=== PATIENT | male | born 1995 | race African-American/Black ===

== ENCOUNTER 2020-08-04 14:12 | Emergency (ER) | payer SELFPAY ==
[~2020-08-04] VITALS: Ht 175.3 cm; Wt 83.9 kg
[2020-08-04 16:02] VITALS: BP 120/54
== END 2020-08-04 17:24 | disposition home or self-care (01) ==
LOC: ER 14:12
DX: S80.11XA Contusion of right lower leg, initial encounter (principal); X58.XXXA Exposure to other specified factors, initial encounter; Y93.89 Activity, other specified; Y92.89 Other specified places as the place of occurrence of the external cause; Y99.8 Other external cause status
CPT/HCPCS: 10060; 10140

== ENCOUNTER 2020-08-08 13:03 | Emergency (ER) | payer SELFPAY ==
[~2020-08-08] VITALS: Ht 175.3 cm; Wt 81.6 kg
[2020-08-08 15:38] VITALS: BP 127/62
== END 2020-08-08 16:36 | disposition home or self-care (01) ==
LOC: ER 13:06
DX: Z48.01 Encounter for change or removal of surgical wound dressing (principal); L02.415 Cutaneous abscess of right lower limb

== ENCOUNTER 2020-08-10 11:00 | Emergency (ER) | payer SELFPAY ==
[~2020-08-10] VITALS: Ht 175.3 cm; Wt 83.9 kg
[2020-08-10 11:13] VITALS: BP 105/54
== END 2020-08-10 11:53 | disposition home or self-care (01) ==
LOC: ER 11:00
DX: S80.11XD Contusion of right lower leg, subsequent encounter (principal); X58.XXXD Exposure to other specified factors, subsequent encounter

== ENCOUNTER 2021-01-31 15:12 | Emergency (ER) | payer SELFPAY ==
[~2021-01-31] VITALS: Ht 172.7 cm; Wt 81.6 kg
[2021-01-31] MEDS ORDERED: IBUP800T27 PO (16:51)
[2021-01-31 17:32] VITALS: BP 151/63
== END 2021-01-31 16:42 | disposition home or self-care (01) ==
LOC: ER 15:12
DX: S29.011A Strain of muscle and tendon of front wall of thorax, initial encounter (principal); F17.210 Nicotine dependence, cigarettes, uncomplicated; F12.10 Cannabis abuse, uncomplicated; X50.1XXA Overexertion from prolonged static or awkward postures, initial encounter; Y93.89 Activity, other specified; Y92.89 Other specified places as the place of occurrence of the external cause; Y99.8 Other external cause status
CPT/HCPCS: 71101

== ENCOUNTER 2022-11-25 15:21 | Inpatient (IN) | payer OTHER ==
[~2022-11-25] VITALS: Ht 172.7 cm; Wt 82.5 kg
[~2022-11-25 15:21] MED LIST: IBUP-1456 PO
[2022-11-25 16:09] LABS: Basophils # (auto) 0 10 ^3/uL (0-0.2); Basophils % (auto) 0.7 % (0.0-2.0); Eosinophils # (auto) 0.1 10 ^3/uL (0-0.8); Eosinophils % (auto) 2.3 % (0.0-7.0); Hematocrit 44.2 % (41.0-53.0); Hemoglobin 15.3 g/dL (13.5-17.5); Lymphocytes # (auto) 2.6 10 ^3/uL (0.4-5.4); Lymphocytes % (auto) 41.8 % (10.0-50.0); Mean Corpuscular Hemoglobin 31.7 pg (28.0-32.0); Mean Corpuscular Hgb Conc. 34.5 g/dL (32.0-36.0); Mean Corpuscular Volume 91.9 fL (80.0-100.0); Monocytes # (auto) 0.3 10 ^3/uL (0-1.3); Monocytes % (auto) 5.2 % (0.0-12.0); Neutrophils # (auto) 3.2 10 ^3/uL (1.6-8.6); Nucleated Red Blood Cells % 0.1 %; Red Blood Cells 4.81 10^6/uL (4.5-5.90); Red Cell Distribution Width 13.1 % (11.8-14.3); White Blood Cell 6.3 10^3/uL (4.4-10.8)
[2022-11-25 16:27] LABS: Alanine Aminotransferase 21 U/L (7-40); Albumin 4.7 g/dL (3.2-4.8); Alkaline Phosphatase 59 U/L (46-116); Anion Gap 6 (5-15); Aspartate Aminotransferase 27 U/L (13-40); Bilirubin, Total 1.5 mg/dL (0.2-1.0); Blood Urea Nitrogen 11 mg/dL (9-23); Calcium 9.5 mg/dL (8.7-10.4); Carbon Dioxide 27 mmol/L (20-30); Chloride 104 mmol/L (98-107); Glucose 94 mg/dL (74-106); Lipase 46 U/L (12-53); Potassium 3.3 mmol/L (3.5-5.1); Sodium 137 mmol/L (136-145); Total Protein 7.6 g/dL (5.7-8.2)
[2022-11-25 18:53] LABS: Urine Bacteria NONE SEEN /hpf (None Seen); Urine Blood Negative /uL (Negative); Urine Clarity Clear (Clear); Urine Color Yellow (Yellow); Urine Mucus FEW (None Seen); Urine Protein, UAD Negative (Negative); Urine Specific Gravity 1.012 (1.001-1.035); Urine Urobilinogen Normal (Negative); Urine WBC 9 /hpf (0 - 3); Urine pH 5.5 (5.0-8.0)
[2022-11-25] MEDS ORDERED: SODIUM CHLORIDE 0.9% 1,000 ML IV ONE (21:00)
[2022-11-25] MEDS ORDERED: ONDANSETRON HCL 4 MG/2 ML VIAL IV ONE (21:00)
[2022-11-25] MEDS ORDERED: MORPHINE SULFATE 4 MG/ML SYR/VIAL IV ONE (21:00)
[2022-11-25] MEDS ORDERED: CEFTRIAXONE SODIUM 2 GM in D5W 5% 100 ML IV ONE (21:00)
[2022-11-25] MEDS ORDERED: ONDANSETRON HCL 4 MG/2 ML VIAL IV PRN (21:15)
[2022-11-25] MEDS ORDERED: DOCUSATE SOD 100 MG CAP PO PRN (21:15)
[2022-11-25] MEDS ORDERED: ACETAMINOPHEN 325 MG TAB PO PRN (21:15)
[2022-11-25] MEDS ORDERED: MORPHINE SULFATE INJ 2 MG/ml SYRG IV PRN (21:15)
[2022-11-25] MEDS: D5W 5% IV SCH (23:57)
[2022-11-25] MEDS: CEFTRIAXONE SODIUM IV SCH (23:57)
[2022-11-26] VITALS (9 sets, daily range): BP systolic 128–146; BP diastolic 58–88; PULSE 41–52; RESP 16–20; TEMP 97.8–98.1; O2SAT 97–100
[2022-11-26] MEDS: CEFTRIAXONE SODIUM IV SCH (00:02)
[2022-11-26] MEDS: D5W 5% IV SCH (00:02)
[2022-11-26 06:46] LABS: Alanine Aminotransferase 18 U/L (7-40); Albumin 4.1 g/dL (3.2-4.8); Alkaline Phosphatase 51 U/L (46-116); Anion Gap 5 (5-15); Aspartate Aminotransferase 23 U/L (13-40); BUN/Creatinine Ratio 6.6 (10.0-20.0); Bilirubin, Total 1.3 mg/dL (0.2-1.0); Blood Urea Nitrogen 9 mg/dL (9-23); Calcium 9.1 mg/dL (8.7-10.4); Carbon Dioxide 28 mmol/L (20-30); Chloride 107 mmol/L (98-107); Glucose 88 mg/dL (74-106); Potassium 3.6 mmol/L (3.5-5.1); Sodium 140 mmol/L (136-145)
[2022-11-26 06:47] LABS: Total Protein 6.8 g/dL (5.7-8.2)
[2022-11-26 06:57] LABS: Basophils # (auto) 0 10 ^3/uL (0-0.2); Basophils % (auto) 0.7 % (0.0-2.0); Eosinophils # (auto) 0.2 10 ^3/uL (0-0.8); Eosinophils % (auto) 2.8 % (0.0-7.0); Hematocrit 44.1 % (41.0-53.0); Hemoglobin 15.1 g/dL (13.5-17.5); Lymphocytes # (auto) 2.3 10 ^3/uL (0.4-5.4); Lymphocytes % (auto) 41.6 % (10.0-50.0); Mean Corpuscular Hemoglobin 31.8 pg (28.0-32.0); Mean Corpuscular Hgb Conc. 34.3 g/dL (32.0-36.0); Mean Corpuscular Volume 92.6 fL (80.0-100.0); Monocytes # (auto) 0.4 10 ^3/uL (0-1.3); Monocytes % (auto) 7.2 % (0.0-12.0); Neutrophils # (auto) 2.6 10 ^3/uL (1.6-8.6); Neutrophils % (auto) 47.7 % (37.0-80.0); Nucleated Red Blood Cells % 0.1 %; Red Blood Cells 4.76 10^6/uL (4.5-5.90); Red Cell Distribution Width 13.1 % (11.8-14.3); White Blood Cell 5.5 10^3/uL (4.4-10.8)
[2022-11-26] MEDS: cefTRIAXone 1GM/50ML D5W 50 ML IV SCH (08:52)
[2022-11-26 15:03] LABS: INR 1.09 (0.9-1.15); Partial Thromboplastin Time 32.2 SEC (24.5-34.5); Prothrombin Time 11.4 sec (9.3-11.8)
[2022-11-26] MEDS: HYDROcodone-ACET 5/325MG TAB PO PRN (18:20)
[2022-11-27] VITALS (8 sets, daily range): BP systolic 118–143; BP diastolic 68–84; PULSE 44–50; RESP 11–20; TEMP 97.9–98.7; O2SAT 98–100
[2022-11-27] MEDS ORDERED: fentaNYL CITRATE 100 MCG/2 ML VL ONE (09:06)
[2022-11-27] MEDS ORDERED: HEPARIN SODIUM (PORCINE) 5000 UNITS/ML 1ML VIAL ONE (09:06)
[2022-11-27] MEDS ORDERED: MIDAZOLAM HCL 2MG/2ML 2ml VIAL (1mg/ml) ONE (09:07)
[2022-11-27] MEDS ORDERED: LIDOCAINE 2%HCL (LOCAL ANESTH.) INJ 20ML MDV ONE ×2 (09:07→10:56)
[2022-11-27] MEDS ORDERED: IODIXANOL 320MG/ML 100ML BTL IV ONE ×2 (09:08→10:54)
[2022-11-27] MEDS ORDERED: CIPR500T4 PO (09:35)
[2022-11-27] MEDS ORDERED: cefTRIAXone 1GM/50ML D5W 50 ML IV ONE (11:45)
[2022-11-27] MEDS: HYDROcodone-ACET 5/325MG TAB PO PRN (12:12)
[2022-11-27] MEDS: cefTRIAXone 1GM/50ML D5W 50 ML IV SCH (12:58)
[2022-11-27] MEDS ORDERED: HYDR-4902 PO (14:14)
[2022-11-28 12:15] LABS: Hepatitis B Surface Antigen Negative (Negative)
[2022-11-28 12:36] LABS: Hepatitis C Antibody Negative (Negative)
== END 2022-11-27 17:32 | disposition home or self-care (01) | DRG 690 ==
LOC: ER 15:21 → OVERFLOW 21:05 → WEST WING 23:49
PROVIDERS: ADMIT Nurse Practitioner Family; ATTEND Nurse Practitioner Acute Care
PROC: 0T9330Z Drainage of Right Kidney Pelvis with Drainage Device, Percutaneous Approach (ICD-10-PCS; principal; 2022-11-27)
PROC: BT111ZZ Fluoroscopy of Right Kidney using Low Osmolar Contrast (ICD-10-PCS; 2022-11-27)
PROC: BT41ZZZ Ultrasonography of Right Kidney (ICD-10-PCS; 2022-11-27)
DX: N13.6 Pyonephrosis (principal); N17.9 Acute kidney failure, unspecified; E87.6 Hypokalemia; F17.210 Nicotine dependence, cigarettes, uncomplicated; Z82.5 Family history of asthma and other chronic lower respiratory diseases; Z83.3 Family history of diabetes mellitus; R00.1 Bradycardia, unspecified
CPT/HCPCS: 36415; 74176; 76775; 76942; 80053; 81001; 83690; 85025; 85610; 85730; 86803; 87086; 87340; 93306; 99152; G0378; J0696; J2250; J2405; J7060; Q9967

== ENCOUNTER → 2022-12-20 | Outpatient (CLI) | payer OTHER ==
[~2022-12-20] MED LIST changes: +CIPR500T4 PO; +HYDR-4902 PO
[2022-12-20 13:41] LABS: Alanine Aminotransferase 33 U/L (7-40); Alkaline Phosphatase 69 U/L (46-116); Carbon Dioxide 30 mmol/L (20-30); Chloride 104 mmol/L (98-107)
[2022-12-20 13:42] LABS: Albumin 4.7 g/dL (3.2-4.8); Anion Gap 4 (5-15); Aspartate Aminotransferase 30 U/L (13-40); BUN/Creatinine Ratio 5.5 (10.0-20.0); Bilirubin, Total 0.8 mg/dL (0.2-1.0); Blood Urea Nitrogen 7 mg/dL (9-23); Glucose 89 mg/dL (74-106); Magnesium 1.8 mg/dL (1.6-2.6); Potassium 4.6 mmol/L (3.5-5.1); Sodium 138 mmol/L (136-145); Total Protein 7.9 g/dL (5.7-8.2); Urine Bacteria NONE SEEN /hpf (None Seen); Urine Blood Negative /uL (Negative); Urine Clarity Clear (Clear); Urine Color Colorless (Yellow); Urine Protein, UAD Negative (Negative); Urine Specific Gravity 1.008 (1.001-1.035); Urine Urobilinogen Normal (Negative); Urine WBC 7 /hpf (0 - 3)
== END | disposition home or self-care (01) ==
LOC: LAB 12:43
PROVIDERS: ATTEND Internal Medicine
DX: N13.9 Obstructive and reflux uropathy, unspecified (principal)
CPT/HCPCS: 36415; 80053; 81001; 83735; 84439; 84443; 87086

== ENCOUNTER → 2023-02-04 | Outpatient (CLI) | payer OTHER ==
[2023-02-04 13:23] LABS: Basophils # (auto) 0 10 ^3/uL (0-0.2); Basophils % (auto) 0.8 % (0.0-2.0); Eosinophils # (auto) 0.1 10 ^3/uL (0-0.8); Eosinophils % (auto) 1.4 % (0.0-7.0); Hemoglobin 15.3 g/dL (13.5-17.5); Lymphocytes # (auto) 1.4 10 ^3/uL (0.4-5.4); Lymphocytes % (auto) 24.4 % (10.0-50.0); Mean Corpuscular Hemoglobin 31.4 pg (28.0-32.0); Mean Corpuscular Volume 92.2 fL (80.0-100.0); Monocytes # (auto) 0.4 10 ^3/uL (0-1.3); Monocytes % (auto) 6.8 % (0.0-12.0); Neutrophils # (auto) 3.8 10 ^3/uL (1.6-8.6); Neutrophils % (auto) 66.6 % (37.0-80.0); Nucleated Red Blood Cells % 1.1 %; Red Blood Cells 4.88 10^6/uL (4.5-5.90); Red Cell Distribution Width 14.1 % (11.8-14.3); White Blood Cell 5.6 10^3/uL (4.4-10.8)
[2023-02-04 13:36] LABS: INR 1.05 (0.9-1.15); Partial Thromboplastin Time 29.6 SEC (24.5-34.5)
[2023-02-04 13:57] LABS: Alanine Aminotransferase 17 U/L (7-40); Albumin 4.7 g/dL (3.2-4.8); Alkaline Phosphatase 60 U/L (46-116); Anion Gap 4 (5-15); Aspartate Aminotransferase 21 U/L (13-40); BUN/Creatinine Ratio 6.7 (10.0-20.0); Bilirubin, Total 1.2 mg/dL (0.2-1.0); Blood Urea Nitrogen 9 mg/dL (9-23); Calcium 10.1 mg/dL (8.5-10.1); Carbon Dioxide 30 mmol/L (20-30); Chloride 105 mmol/L (98-107); Glucose 95 mg/dL (74-106); Potassium 4.6 mmol/L (3.5-5.1); Sodium 139 mmol/L (136-145); Total Protein 7.7 g/dL (5.7-8.2)
== END | disposition home or self-care (01) ==
LOC: LAB 13:01
PROVIDERS: ATTEND Internal Medicine
DX: Z01.812 Encounter for preprocedural laboratory examination (principal); N13.30 Unspecified hydronephrosis
CPT/HCPCS: 36415; 80053; 85025; 85610; 85730

== ENCOUNTER 2023-02-07 07:06 | Day surgery (SDC) | payer OTHER ==
[~2023-02-07] VITALS: Ht 172.7 cm; Wt 83.9 kg
[2023-02-07] MEDS ORDERED: fentaNYL CITRATE 100 MCG/2 ML VL ONE (08:43)
[2023-02-07] MEDS ORDERED: MIDAZOLAM HCL 2MG/2ML 2ml VIAL (1mg/ml) ONE (08:44)
[2023-02-07] MEDS ORDERED: LIDOCAINE 2%HCL (LOCAL ANESTH.) INJ 20ML MDV ONE (08:44)
[2023-02-07] MEDS ORDERED: IODIXANOL 320MG/ML 100ML BTL IV ONE (08:44)
== END 2023-02-07 09:38 | disposition home or self-care (01) ==
LOC: CATH 07:06
PROVIDERS: ATTEND Radiology Diagnostic Radiology
DX: T83.022A Displacement of nephrostomy catheter, initial encounter (principal); N13.30 Unspecified hydronephrosis; F41.9 Anxiety disorder, unspecified; Y82.8 Other medical devices associated with adverse incidents; Z82.49 Family history of ischemic heart disease and other diseases of the circulatory system; Z82.5 Family history of asthma and other chronic lower respiratory diseases; Z72.89 Other problems related to lifestyle; Z91.013 Allergy to seafood
CPT/HCPCS: 50431; J1644; J7040; Q9967; 74425; 99152; J2250

== ENCOUNTER 2023-02-23 04:39 | Inpatient (IN) | payer OTHER ==
[~2023-02-23] VITALS: Ht 175.3 cm; Wt 86.2 kg
[2023-02-23] MEDS ORDERED: MORPHINE SULFATE 4 MG/ML SYR/VIAL IV ONE (07:30)
[2023-02-23] MEDS ORDERED: ONDANSETRON HCL 4 MG/2 ML VIAL IV ONE (07:30)
[2023-02-23] MEDS ORDERED: SODIUM CHLORIDE 0.9% 1,000 ML IV ONE (07:30)
[2023-02-23 07:38] LABS: Basophils # (auto) 0 10 ^3/uL (0-0.2); Basophils % (auto) 0.6 % (0.0-2.0); Eosinophils # (auto) 0.1 10 ^3/uL (0-0.8); Hematocrit 46.9 % (41.0-53.0); Lymphocytes # (auto) 2.2 10 ^3/uL (0.4-5.4); Mean Corpuscular Hemoglobin 31.3 pg (28.0-32.0); Mean Corpuscular Volume 92.1 fL (80.0-100.0); Monocytes # (auto) 0.5 10 ^3/uL (0-1.3); Monocytes % (auto) 6.2 % (0.0-12.0); Neutrophils # (auto) 4.7 10 ^3/uL (1.6-8.6); Neutrophils % (auto) 62.2 % (37.0-80.0); Nucleated Red Blood Cells % 0.1 %; White Blood Cell 7.5 10^3/uL (4.4-10.8)
[2023-02-23 07:49] LABS: INR 1.02 (0.9-1.15); Prothrombin Time 10.7 sec (9.3-11.8)
[2023-02-23 07:53] LABS: Alanine Aminotransferase 19 U/L (7-40); Albumin 5.1 g/dL (3.2-4.8); Alkaline Phosphatase 71 U/L (46-116); Anion Gap 11 (5-15); Aspartate Aminotransferase 25 U/L (13-40); BUN/Creatinine Ratio 9.5 (10.0-20.0); Blood Urea Nitrogen 11 mg/dL (9-23); Calcium 10.3 mg/dL (8.5-10.1); Carbon Dioxide 24 mmol/L (20-30); Chloride 104 mmol/L (98-107); Glucose 92 mg/dL (74-106); Potassium 4.1 mmol/L (3.5-5.1); Sodium 139 mmol/L (136-145)
[2023-02-23 07:54] LABS: Bilirubin, Total 0.5 mg/dL (0.2-1.0); Total Protein 8.1 g/dL (5.7-8.2)
[2023-02-23] MEDS ORDERED: KETOROLAC TROMETH 30 MG/ML 1ML VIAL IV ONE (09:15)
[2023-02-23 10:53] VITALS: BP 138/71; PULSE 62; RESP 18; O2SAT 100
[2023-02-23] MEDS ORDERED: HYDR1TAB97 PO (12:17)
[2023-02-23] MEDS ORDERED: CIPR500T4 PO (12:17)
[2023-02-23] MEDS ORDERED: HYDROcodone-ACET 5/325MG TAB PO PRN ×2 (12:30→13:00)
[2023-02-23] MEDS ORDERED: SODIUM CHLORIDE 0.9% 1,000 ML IV SCH (13:00)
[2023-02-23] MEDS ORDERED: KETOROLAC TROMETH 30 MG/ML 1ML VIAL IV PRN (13:00)
[2023-02-23] MEDS ORDERED: ACETAMINOPHEN 325 MG TAB PO PRN (13:00)
[2023-02-24] MEDS ORDERED: ENOXAPARIN SOD 40 MG/0.4 ML SYRINGE SC SCH (10:00)
== END 2023-02-23 18:25 | disposition left against medical advice (07) | DRG 700 ==
LOC: ER 04:39 → EDBD 04:39 → OVERFLOW 12:57
PROVIDERS: ADMIT Nurse Practitioner Family; ATTEND Nurse Practitioner Family
DX: T83.022A Displacement of nephrostomy catheter, initial encounter (principal); F17.210 Nicotine dependence, cigarettes, uncomplicated; Z53.29 Procedure and treatment not carried out because of patient's decision for other reasons; Y73.2 Prosthetic and other implants, materials and accessory gastroenterology and urology devices associated with adverse incidents; Z91.013 Allergy to seafood; Z79.899 Other long term (current) drug therapy; Y92.89 Other specified places as the place of occurrence of the external cause; Z82.5 Family history of asthma and other chronic lower respiratory diseases; Z83.3 Family history of diabetes mellitus
CPT/HCPCS: 36415; 74176; 80053; 85025; 85610; 96361; 96374; 96375; G0378; J1885; J2405

== ENCOUNTER → 2023-05-06 | Outpatient (CLI) | payer OTHER ==
[~2023-05-06] MED LIST changes: -HYDR-4902 PO; -IBUP-1456 PO
[2023-05-06 12:39] LABS: Basophils # (auto) 0 10 ^3/uL (0-0.2); Basophils % (auto) 0.6 % (0.0-2.0); Eosinophils # (auto) 0.1 10 ^3/uL (0-0.8); Eosinophils % (auto) 1.7 % (0.0-7.0); Hematocrit 41.7 % (41.0-53.0); Hemoglobin 14.2 g/dL (13.5-17.5); Lymphocytes % (auto) 34.9 % (10.0-50.0); Mean Corpuscular Hemoglobin 31.4 pg (28.0-32.0); Mean Corpuscular Hgb Conc. 34.1 g/dL (32.0-36.0); Mean Corpuscular Volume 92.2 fL (80.0-100.0); Monocytes # (auto) 0.3 10 ^3/uL (0-1.3); Monocytes % (auto) 4.5 % (0.0-12.0); Neutrophils # (auto) 3.3 10 ^3/uL (1.6-8.6); Neutrophils % (auto) 58.3 % (37.0-80.0); Nucleated Red Blood Cells % 0.1 %; Red Blood Cells 4.52 10^6/uL (4.5-5.90); Red Cell Distribution Width 14.1 % (11.8-14.3); White Blood Cell 5.6 10^3/uL (4.4-10.8)
[2023-05-06 13:17] LABS: Urine Bacteria NONE SEEN /hpf (None Seen); Urine Blood Negative /uL (Negative); Urine Clarity Clear (Clear); Urine Color Colorless (Yellow); Urine Protein, UAD Negative (Negative); Urine Specific Gravity 1.011 (1.001-1.035); Urine Urobilinogen Normal (Negative); Urine WBC 1 /hpf (0 - 3); Urine pH 7.5 (5.0-8.0)
[2023-05-06 13:29] LABS: Chloride 109 mmol/L (98-107); Potassium 3.7 mmol/L (3.5-5.1); Sodium 142 mmol/L (136-145)
[2023-05-06 13:30] LABS: Anion Gap 4 (5-15); Calcium 9.5 mg/dL (8.5-10.1); Carbon Dioxide 29 mmol/L (20-30)
[2023-05-06 13:35] LABS: BUN/Creatinine Ratio 5.9 (10.0-20.0); Blood Urea Nitrogen 7 mg/dL (9-23); Glucose 91 mg/dL (74-106)
== END | disposition home or self-care (01) ==
LOC: LAB 12:27
PROVIDERS: ATTEND Internal Medicine
DX: N13.30 Unspecified hydronephrosis (principal)
CPT/HCPCS: 36415; 80048; 81001; 85025

== ENCOUNTER 2024-09-25 16:03 | Inpatient (IN) | payer SELFPAY ==
[~2024-09-25] VITALS: Ht 167.6 cm; Wt 87.6 kg
--- NOTE | 2024-09-25 16:38 | ED.PDOC ---
History of Present Illness HPI Comments 29 y/o M presents with c/c nonradiating, left flank pain. Patient endorses on ongoing, intermittent, pain following initial, unprovoked onset for the past 2- 3x months. He also reports 1x month history of both of his eyes turning yellow and 2-3x week history of palpitations and bilateral chest wall pain. Only significant history of right kidney obstruction, that required surgical intervention, in 2023. He also reports noticing discharge from his penis, recently, following changing sexual partners 1x month ago. Denies any further acute symptoms. Time Seen by MD: 16:10 Primary Care Provider: DENIES Reviewed Notes: Nurses Notes, Medications, Allergies Allergies: Coded Allergies: Shellfish Allergy (Verified Allergy, Unknown, 02/23/23) Uncoded Allergies: SHELL FISH (Allergy, Unknown, SWOLLEN EYES, HIVES, 02/05/23) Home Meds Reported Medications Ciprofloxacin Hcl (Ciprofloxacin Hcl) 500 Mg Tab, 1 TAB PO BID 02/23/23 Information Source: Patient Mode of Arrival: Ambulatory Severity: Moderate Timing: Months Duration: Since onset Prehospital treatment: None Past Medical History Past Medical History (Other): right kidney obstruction (nephrostomy tube due to UPJ obstruction) Family History Family History: Reviewed,noncontributory to illness Social History Smoker: Cigarettes Alcohol: Occasionally Drugs: Marijuana Lives In: Home All Other Systems: Reviewed and Negative (Comprehensive systems review obtained and negative except for what is stated in the HPI.) Physical Exam General Appearance: No Apparent Distress, Normal HEENT: Normal ENT Inspection, Pharynx Normal, TMs Normal Neck: Full Range of Motion, Non-Tender, Normal, Normal Inspection Respiratory: Chest Non-Tender, Lungs Clear, No Accessory Muscle Use, No Respiratory Distress, Normal Breath Sounds Cardiovascular: No Edema, No JVD, No Murmur, No Gallop, Normal Peripheral Pulses, Regular Rate/Rhythm Breast Exam: Deferred Gastrointestinal: No Organomegaly, Non Tender, No Pulsatile Mass, Normal Bowel Sounds, Soft Genitalia: Deferred Pelvic: Deferred Rectal: Deferred Extremities: No calf tenderness, Normal capillary refill, Normal inspection, Normal range of motion, Non-tender, No pedal edema Musculoskeletal : Apperance: Normal Neurologic: Alert, electronic sensing equipment assembler II-XII nml as Tested, No Motor Deficits, Normal Affect, Normal Mood, No Sensory Deficits Cerebellar Function: Normal Reflexes: Normal Skin: Dry, Normal Color, Warm Lymphatic: No Adenopathy Was a procedure done? Was a procedure done?: No Differential Dx Considerations may include: nephrolithiasis, pyelonephritis, PID, musculoskeletal pain, gastritis, gastroenteritis, STI, among others X-Ray, Labs, Meds, VS Vital Signs Date Time Temp Pulse Resp B/P (MAP) Pulse Ox O2 Delivery O2 Flow Rate FiO2 09/25/24 20:55 98.3 49 17 151/83 (105) 97 98.3 09/25/24 18:29 48 17 97 Room Air 09/25/24 18:29 97.5 48 16 129/63 (85) 97 97.5 09/25/24 16:05 98.4 60 16 133/98 (110) 97 98.4 Lab Test 09/25/24 18:25 09/25/24 16:33 Range/Units Urine Color Yellow Yellow Urine Clarity Clear Clear Urine pH 6.5 5.0-9.0 Urine Specific [place] 1.020 1.001-1.035 Urine Protein Negative Negative Urine Ketones 1+ H Negative Urine Blood Negative Negative /uL Urine Nitrite Negative Negative Urine Bilirubin Negative Negative Urine Urobilinogen 2 H Negative mg/dL Urine Leukocyte Esterase Negative Negative /uL Urine RBC 1 0 - 3 /hpf Urine Microscopic WBC 3 0-3 /HPF Urine Squamous Epithelial Cells Few <5 /hpf Urine Bacteria None seen None Seen /hpf Urine Mucus Few None Seen Urine Glucose Normal Normal mg/dL Chlamydia trachomatis (CURTIS) Pending Neisseria gonorrhoeae (CURTIS) Pending White Blood Count 6.6 4.4-10.8 10^3/uL Red Blood Count 5.15 4.5-5.90 10^6/uL Hemoglobin 17.0 13.5-17.5 g/dL Hematocrit 49.0 41.0-53.0 % Mean Corpuscular Volume 95.1 80.0-100.0 fL Mean Corpuscular Hemoglobin 33.0 H 28.0-32.0 pg Mean Corpuscular Hemoglobin Concent 34.8 32.0-36.0 g/dL Red Cell Distribution Width 14.0 11.8-14.3 % Platelet Count 192 140-450 10^3/uL Mean Platelet Volume 8.3 6.9-10.8 fL Neutrophils (%) (Auto) 66.3 37.0-80.0 % Lymphocytes (%) (Auto) 26.3 10.0-50.0 % Monocytes (%) (Auto) 5.6 0.0-12.0 % Eosinophils (%) (Auto) 1.0 0.0-7.0 % Basophils (%) (Auto) 0.8 0.0-2.0 % Neutrophils # (Auto) 4.4 1.6-8.6 10 ^3/uL Lymphocytes # (Auto) 1.7 0.4-5.4 10 ^3/uL Monocytes # (Auto) 0.4 0-1.3 10 ^3/uL Eosinophils # (Auto) 0.1 0-0.8 10 ^3/uL Basophils # (Auto) 0.1 0-0.2 10 ^3/uL Nucleated Red Blood Cells 0.1 % Sodium Level 140 136-145 mmol/L Potassium Level 3.3 L 3.5-5.1 mmol/L Chloride Level 106 98-107 mmol/L Carbon Dioxide Level 27 20-31 mmol/L Anion Gap 7 5-15 Blood Urea Nitrogen 8 L 9-23 mg/dL Creatinine 1.30 0.700-1.30 mg/dL Glomerular Filtration Rate Calc 77 >90 mL/min BUN/Creatinine Ratio 6.2 L 10.0-20.0 Serum Glucose 104 74-106 mg/dL Calcium Level 10.1 8.7-10.4 mg/dL Total Bilirubin 1.1 H 0.2-1.0 mg/dL Direct Bilirubin 0.4 H <0.3 mg/dL Aspartate Amino Transferase (AST) 27 13-40 U/L Alanine Aminotransferase (ALT) 14 7-40 U/L Alkaline Phosphatase 65 46-116 U/L Total Protein 7.4 5.7-8.2 g/dL Albumin 4.6 3.2-4.8 g/dL Lipase 42 12-53 U/L Time of 1ST Reevaluation: 16:40 Reevaluation 1ST: Unchanged Patient Education/Counseling: Need For Follow Up Family Education/Counseling: No Family Present Comments Previous visits reviewed: February 23, 2023 encounter for nephrostomy tube displaced The following tests were ordered, and results were reviewed by me: chlamydia test, UA, lipase, hepatic panel, UA, CBC, BMP Additional Information was gathered from interviewing the following independent historians: N/A I reviewed and agreed with the following test results read by other providers: N/A I discussed treatment and results with medical personnel and: patient Additional Information Comprehensive review of systems are negative unless otherwise stated in HPI Previous encounters reviewed: N/A Labs/tests ordered: Imaging results in concurrent agreement with: Additional historians interviewed: N/A Discuss care to medical personal and: patient SEPSIS Sepsis Screen Physician Orders Chlamydia/Gc Amplification (09/25/24 16:42) Ct Ab Pel Wo Con-No Oral Or Iv (09/25/24 20:16) Ceftriaxone Sodium (Rocephin) (09/25/24 22:00) Doxycycline Tablet (Vibramycin Tablet) (09/25/24 22:00) Vital Signs Date Time Temp Pulse Resp B/P (MAP) Pulse Ox O2 Delivery O2 Flow Rate FiO2 09/25/24 20:55 98.3 49 17 151/83 (105) 97 98.3 09/25/24 18:29 48 17 97 Room Air 09/25/24 18:29 97.5 48 16 129/63 (85) 97 97.5 09/25/24 16:05 98.4 60 16 133/98 (110) 97 98.4 Laboratory Tests Test 09/25/24 16:33 White Blood Count 6.6 10^3/uL (4.4-10.8) Departure 1 Departure Time of Disposition: 21:57 (Patient presented with abdominal pain that was concerning for possible appendicits, gastritis, cholecystitis, colitis, gastroenteritis, sbo, or orther possible surgical emergency. Data: 1. I ordered and reviewed the result of at least 3 labs including a CBC, BMP, and Urinalysis. 2. I independently interpreted the following tests: CT Abdoment and Pelvis is concerning for hydronephrosis .Risk:This patient has a high risk of morbidity due to further diagnostic testing or treatment and may suffer from an acute abdominal process disorder. Workup reveals patient nephrosis and worsening abdom inal pain as well as penile discharge and patient should be admitted for further workup. and possible expert consultation. ) Impression: Primary Impression: Left flank pain Additional Impressions: Hydronephrosis Qualified Codes: N13.30 - Unspecified hydronephrosis Penile discharge Disposition: ADMITTED INPATIENT Admit to: Med Surg Condition: Serious Critical Care Note Critical Care Time?: No Stability Stability form required: No Heart Score Heart Score: Heart Score Response (Comments) Value History N/A 0 EKG N/A 0 Age N/A 0 Risk Factors N/A 0 Troponin N/A 0 Total 0 I personally scribed for ALEC BROOKS MD ([email or web address]) on 09/25/24 at 16:38. Electronically submitted by Akash Craven ([email or web address]). I personally scribed for ALEC BROOKS MD ([email or web address]) on 09/25/24 at 19:30. Electronically submitted by Akash Craven ([email or web address]). ALEC BROOKS MD Sep 25, 2024 16:38
[2024-09-25 16:55] LABS: Hematocrit 49.0 % (41.0-53.0); Hemoglobin 17.0 g/dL (13.5-17.5); Mean Corpuscular Hemoglobin 33.0 pg (28.0-32.0); Mean Corpuscular Volume 95.1 fL (80.0-100.0); Nucleated Red Blood Cells % 0.1 %
[2024-09-25 17:13] LABS: Alanine Aminotransferase 14 U/L (7-40); Albumin 4.6 g/dL (3.2-4.8); Alkaline Phosphatase 65 U/L (46-116); Anion Gap 7 (5-15); BUN/Creatinine Ratio 6.2 (10.0-20.0); Calcium 10.1 mg/dL (8.7-10.4); Carbon Dioxide 27 mmol/L (20-31); Chloride 106 mmol/L (98-107); Glucose 104 mg/dL (74-106); Sodium 140 mmol/L (136-145); Total Protein 7.4 g/dL (5.7-8.2)
[2024-09-25 17:14] LABS: Bilirubin, Total 1.1 mg/dL (0.2-1.0)
[2024-09-25 18:02] LABS: Bilirubin, Direct 0.4 mg/dL (<0.3); Blood Urea Nitrogen 8 mg/dL (9-23); Potassium 3.3 mmol/L (3.5-5.1)
[2024-09-25 18:16] LABS: Lipase 42 U/L (12-53)
[2024-09-25 18:52] LABS: Urine Protein, UAD Negative (Negative)
--- NOTE | 2024-09-25 21:04 | DVH ---
COMPUTERIZED TOMOGRAPHY ABDOMEN AND PELVIS WITHOUT CONTRAST REASON FOR EXAM: flank pain COMPARISON: CT CT AB PEL WO CON-NO ORAL OR IV on DOS: 02/23/23, CT CT AB PEL WO CON-NO ORAL OR IV on DOS: 11/25/22 TECHNIQUE: Spiral scans were acquired from the diaphragm to the symphysis pubis without intravenous c ontrast administration. 2-D coronal and sagittal reformatted images were provided. Radiation optimiza tion: All CT scans at this facility use at least one of these dose optimization techniques: Automated exposure control mA and/or kV adjustment per patient size (includes targeted exams where dose is mat ched to clinical indication) or iterative reconstruction. RADIATION DOSE: CTDI: 10 mGy DLP: 551 mGy-cm FINDINGS: The lung bases are clear. There is no pleural effusion. There is no pericardial effusion. The spleen is not enlarged. The liver is normal in size and contour. Evaluation of the abdominal org ans is suboptimal in the absence of intravenous contrast. No calcified gallstone is identified. Unen hanced appearance of the pancreas is unremarkable. The adrenal glands are normal. The kidneys are sim ilar in size. There is mild right hydronephrosis, significantly decreased compared with the prior terrance dy. There is no left hydronephrosis. No renal, ureteral, or bladder calculus is identified. The uri nary bladder is grossly unremarkable. The prostate and seminal vesicles are within normal limits. Th e colonic stool burden is small. The appendix is normal. No free fluid is identified in the abdomen or pelvis. No pathologic lymphadenopathy is identified within the limitations of this noncontrast terrance dy. There is no abdominal aortic aneurysm. There is no pathologic distention of the small bowel to s uggest obstruction. No acute osseous abnormality is identified. IMPRESSION: Mild right hydronephrosis, significantly decreased compared with the prior study. This may be the new baseline for the patient given the degree of previous right collecting system distention. No other s ignificant abnormality in the abdomen or pelvis. Normal appendix
[2024-09-25] MEDS: cefTRIAXone SOD 1,000 MG VL IM ONE (23:07)
[2024-09-25] MEDS: DOXYCYCLINE 100 MG TAB/CAP PO ONE (23:07)
[2024-09-26] VITALS (7 sets, daily range): BP systolic 130–154; BP diastolic 70–95; PULSE 41–47; RESP 15–20; TEMP 96.5–98.1; O2SAT 96–100
[2024-09-26] MEDS ORDERED: HYDROcodone-ACET 5/325MG TAB PO PRN (00:15)
[2024-09-26] MEDS ORDERED: ACETAMINOPHEN 325 MG TAB PO PRN (00:15)
[2024-09-26 00:57] LABS: Hematocrit 47.5 % (41.0-53.0); Hemoglobin 16.8 g/dL (13.5-17.5); Mean Corpuscular Hemoglobin 33.8 pg (28.0-32.0); Mean Corpuscular Volume 95.7 fL (80.0-100.0); Nucleated Red Blood Cells % 0.2 %
--- NOTE | 2024-09-26 01:02 | DVHHPRES ---
History of Present Illness Resident Creating Document: EDU REYES RESIDENT Reason for Visit: Acute urethritis , Suspected obstructive uropathy of left kidney History of Present Illness This is a 29-year-old male with past medical history of right ureteropelvic junction obstruction, bradycardia (athlete's heart physiology), and urinary tract infection, status-post right nephrostomy tube placement in November 2022, presenting to the ED on September 25, 2024 with 23 months of intermittent non- radiating left flank pain and left lower quadrant abdominal pain, described as dull and aching. The patient also endorses grayish-yellow urethral discharge that began approximately 2 weeks ago, following unprotected sexual intercourse with a new partner 1 month prior. He additionally reports scleral icterus for 1 month, fatigue, generalized weakness, and chest wall discomfort over the last 2 weeks. No dysuria, urinary frequency, hematuria, fevers, chills, nausea, vomiting, or weight loss reported. Denies recent travel or IV drug use. Previous CT scan in Feb 2023 showed moderate right hydronephrosis, now improved. UA is positive for ketones and urobilinogen. Chlamydia and Gonorrhea PCR pending. CT A/P today shows mild right hydronephrosis, no left hydronephrosis, no stones. He has persistent bradycardia with HR in the 40s-50s, but is asymptomatic and has previously been cleared by cardiology. Given the discharge, icterus, abnormal labs, and pain, the patient is being admitted for further infectious and urologic evaluation. CT Abdomen/Pelvis 09/25/2024 (Non-contrast): Mild right hydronephrosis (improved from prior), no calculi, no left hydronephrosis Prior CT 02/24/2023: Moderate right hydronephrosis with abrupt tapering Echo 11/2022: EF 60%, mild aortic regurgitation, grade I diastolic dysfunction, no pericardial effusion Past Medical History Right ureteropelvic junction obstruction (11/2022) Bradycardia (evaluated as athletes heart) UTI Past Surgical History Right nephrostomy tube placement (11/2022) Family History Father: COPD Mother: Type 2 Diabetes Mellitus Smoke: 1 pack per day ALCOHOL: occassional Drugs: Marijuana Lives: with Family (Home) Past Social History Sexually active with recent unprotected sex Avid athlete, regular physical activity Review of Systems Review of Systems General: Fatigue, weakness HEENT: Yellow sclerae Cardiac: Bradycardia, palpitations, chest wall discomfort Respiratory: No SOB or cough GI: Left-sided pain, no nausea, vomiting, diarrhea, or constipation : Urethral discharge, left flank pain, no dysuria or hematuria MSK: Chest wall soreness Neuro: No headache, syncope, confusion Skin: No rash Psych: No anxiety, depression Constitutional: Yes: Weakness, Malaise Eyes: Other Other General: Fatigue, weakness HEENT: Yellow sclerae Cardiac: Bradycardia, palpitations, chest wall discomfort Respiratory: No SOB or cough GI: Left-sided pain, no nausea, vomiting, diarrhea, or constipation : Urethral discharge, left flank pain, no dysuria or hematuria MSK: Chest wall soreness Neuro: No headache, syncope, confusion Skin: No rash Psych: No anxiety, depression Allergies: Coded Allergies: Shellfish Allergy (Verified Allergy, Unknown, 02/23/23) Uncoded Allergies: SHELL FISH (Allergy, Unknown, SWOLLEN EYES, HIVES, 02/05/23) Medications Current Medications Medications Dose Ordered Sig/Eyal Route Start Time Stop Time Status Last Admin Dose Admin Acetaminophen 650 mg Q6HP PRN PO 09/26/24 00:15 UNV Acetaminophen/ Hydrocodone Bitart 1 tab Q4HP PRN PO 09/26/24 00:15 UNV Doxycycline Monohydrate 100 mg BID PO 09/26/24 10:00 UNV Exam Vital Signs Vital Signs Date Time Temp Pulse Resp B/P (MAP) Pulse Ox O2 Delivery O2 Flow Rate FiO2 09/25/24 23:00 98.3 49 16 120/72 (88) 96 98.3 09/25/24 18:29 Room Air Exam Vitals: Temp 97.5F, HR 49 bpm (bradycardia), BP 120/72 mmHg, RR 16, SpO2 98% on RA General: Alert, oriented, mild distress HEENT: Scleral icterus Neck: No lymphadenopathy or JVD CVS: Bradycardic, regular rhythm, no murmurs Resp: Clear to auscultation GI: Mild tenderness LLQ, no rebound or guarding : Penile urethral discharge, no testicular swelling or tenderness Neuro: A&O 3 Skin: No rashes or lesions Labs/Xrays PATIENT: LYNDARAVI ACCT: [id number] UNIT: [id number] : 1995 LOC: ER ROOM / BED: / AGE / SEX: 29 / M ADM STATUS: REG ER SERVICE 15 ORDERING PHYSICIAN: ALEC BROOKS MD PROCEDURE(s): ABPL - CT AB PEL WO CON-NO ORAL OR IV REASON: flank pain ORDER NUMBER(s): [id number], ACCESSION NUMBER(s): [id number] COMPUTERIZED TOMOGRAPHY ABDOMEN AND PELVIS WITHOUT CONTRAST REASON FOR EXAM: flank pain COMPARISON: CT CT AB PEL WO CON-NO ORAL OR IV on DOS: 02/23/23, CT CT AB PEL WO CON-NO ORAL OR IV on DOS: 11/25/22 TECHNIQUE: Spiral scans were acquired from the diaphragm to the symphysis pubis without intravenous contrast administration. 2-D coronal and sagittal reformatted images were provided. Radiation optimization: All CT scans at this facility use at least one of these dose optimization techniques: Automated exposure control mA and/or kV adjustment per patient size (includes targeted exams where dose is matched to clinical indication) or iterative reconstruction. RADIATION DOSE: CTDI: 10 mGy DLP: 551 mGy-cm FINDINGS: The lung bases are clear. There is no pleural effusion. There is no pericardial effusion. The spleen is not enlarged. The liver is normal in size and contour. Evaluation of the abdominal organs is suboptimal in the absence of intravenous contrast. No calcified gallstone is identified. Unenhanced appearance of the pancreas is unremarkable. The adrenal glands are normal. The kidneys are similar in size. There is mild right hydronephrosis, significantly decreased compared with the prior study. There is no left hydronephrosis. No renal, ureteral, or bladder calculus is identified. The urinary bladder is grossly unremarkable. The prostate and seminal vesicles are within normal limits. The colonic stool burden is small. The appendix is normal. No free fluid is identified in the abdomen or pelvis. No pathologic lymphadenopathy is identified within the limitations of this noncontrast study. There is no abdominal aortic aneurysm. There is no pathologic distention of the small bowel to suggest obstruction. No acute osseous abnormality is identified. IMPRESSION: Mild right hydronephrosis, significantly decreased compared with the prior study. This may be the new baseline for the patient given the degree of previous right collecting system distention. No other significant abnormality in the abdomen or pelvis. Normal appendix ATED BY: TODD LIND MD DICTATED DATE/TIME: 09/25/242101 SIGNED BY: TODD LIND MD SIGNED DATE/TIME: 09/25/242101 CC: Labs Test 09/25/24 18:25 09/25/24 16:33 Range/Units Urine Color Yellow Yellow Urine Clarity Clear Clear Urine pH 6.5 5.0-9.0 Urine Specific [place] 1.020 1.001-1.035 Urine Protein Negative Negative Urine Ketones 1+ H Negative Urine Blood Negative Negative /uL Urine Nitrite Negative Negative Urine Bilirubin Negative Negative Urine Urobilinogen 2 H Negative mg/dL Urine Leukocyte Esterase Negative Negative /uL Urine RBC 1 0 - 3 /hpf Urine Microscopic WBC 3 0-3 /HPF Urine Squamous Epithelial Cells Few <5 /hpf Urine Bacteria None seen None Seen /hpf Urine Mucus Few None Seen Urine Glucose Normal Normal mg/dL White Blood Count 6.6 4.4-10.8 10^3/uL Red Blood Count 5.15 4.5-5.90 10^6/uL Hemoglobin 17.0 13.5-17.5 g/dL Hematocrit 49.0 41.0-53.0 % Mean Corpuscular Volume 95.1 80.0-100.0 fL Mean Corpuscular Hemoglobin 33.0 H 28.0-32.0 pg Mean Corpuscular Hemoglobin Concent 34.8 32.0-36.0 g/dL Red Cell Distribution Width 14.0 11.8-14.3 % Platelet Count 192 140-450 10^3/uL Mean Platelet Volume 8.3 6.9-10.8 fL Neutrophils (%) (Auto) 66.3 37.0-80.0 % Lymphocytes (%) (Auto) 26.3 10.0-50.0 % Monocytes (%) (Auto) 5.6 0.0-12.0 % Eosinophils (%) (Auto) 1.0 0.0-7.0 % Basophils (%) (Auto) 0.8 0.0-2.0 % Neutrophils # (Auto) 4.4 1.6-8.6 10 ^3/uL Lymphocytes # (Auto) 1.7 0.4-5.4 10 ^3/uL Monocytes # (Auto) 0.4 0-1.3 10 ^3/uL Eosinophils # (Auto) 0.1 0-0.8 10 ^3/uL Basophils # (Auto) 0.1 0-0.2 10 ^3/uL Nucleated Red Blood Cells 0.1 % Sodium Level 140 136-145 mmol/L Potassium Level 3.3 L 3.5-5.1 mmol/L Chloride Level 106 98-107 mmol/L Carbon Dioxide Level 27 20-31 mmol/L Anion Gap 7 5-15 Blood Urea Nitrogen 8 L 9-23 mg/dL Creatinine 1.30 0.700-1.30 mg/dL Glomerular Filtration Rate Calc 77 >90 mL/min BUN/Creatinine Ratio 6.2 L 10.0-20.0 Serum Glucose 104 74-106 mg/dL Calcium Level 10.1 8.7-10.4 mg/dL Total Bilirubin 1.1 H 0.2-1.0 mg/dL Direct Bilirubin 0.4 H <0.3 mg/dL Aspartate Amino Transferase (AST) 27 13-40 U/L Alanine Aminotransferase (ALT) 14 7-40 U/L Alkaline Phosphatase 65 46-116 U/L Total Protein 7.4 5.7-8.2 g/dL Albumin 4.6 3.2-4.8 g/dL Lipase 42 12-53 U/L SEPSIS Sepsis Screen Date sepsis recognized/suspect: Sep 25, 2024 Time Sepsis recognized/suspect: 1629 Recent Procedure: No On Antibiotic Therapy: No Respiratory Rate >20: No Heart Rate >90: No Temp<36 C (96.8 F) or >38.3 C: No SBP <90 or MAP <65 mmHG: No New Acute Mental Status Change: No Is the patient on CPAP, BIPAP,: No Physician Orders Chlamydia/Gc Amplification (09/25/24 16:42) Ct Ab Pel Wo Con-No Oral Or Iv (09/25/24 20:16) Admit (09/26/24 00:13) Code Status (09/26/24 00:13) Vital Signs .PER UNIT PROTOCOL (09/26/24 00:13) Review Orders With Adm. (09/26/24 00:13) Encourage Activity As Tolerate (09/26/24 00:13) Regular Diet (09/26/24 Breakfast) Acetaminophen Tablet (Tylenol Tablet) (09/26/24 00:15) Notify Md Of Changes From Base (09/26/24 00:13) Advance Directive (09/26/24 00:13) Urinalysis (09/26/24 00:13) Complete Blood Count (09/26/24 00:13) Patient Condition (09/26/24 00:13) Allergies (09/26/24 00:13) Hydrocodone-Acet 5/325mg Tab ([place] 5/32 (09/26/24 00:15) Hemoglobin A1c (09/26/24 00:13) Sequential Compression Device (09/26/24 ) Stat Ekg For Chest Pain (09/26/24 00:13) Notify Md Of Changes From Base (09/26/24 00:13) Comprehensive Metabolic Panel (09/26/24 00:13) Magnesium (09/26/24 00:13) Phosphorus (09/26/24 00:13) Hepatic Panel (09/26/24 00:13) Hiv 1&2 Antibody (09/26/24 00:13) Kidney (09/26/24 00:13) Potassium Er Tablet (Klor-Con Tablet) (09/26/24 00:15) Thiamine Tab (09/26/24 00:15) Electrical Designer Drafter (09/26/24 00:13) Troponin-I Hs (09/26/24 00:13) B-Type Natriuretic Peptide (09/26/24 00:13) Troponin-I Hs (09/26/24 01:13) Troponin-I Hs (09/26/24 03:13) Urine Bacterial Culture (09/26/24 00:13) Doxycycline Tablet (Vibramycin Tablet) (09/26/24 10:00) Vital Signs Date Time Temp Pulse Resp B/P (MAP) Pulse Ox O2 Delivery O2 Flow Rate FiO2 09/25/24 23:00 98.3 49 16 120/72 (88) 96 98.3 09/25/24 20:55 98.3 49 17 151/83 (105) 97 98.3 09/25/24 18:29 48 17 97 Room Air 09/25/24 18:29 97.5 48 16 129/63 (85) 97 97.5 Laboratory Tests Test 09/25/24 16:33 White Blood Count 6.6 10^3/uL (4.4-10.8) Medications Medications Dose Ordered Sig/Eyal Route Start Time Stop Time Status Last Admin Dose Admin Ceftriaxone Sodium 1,000 mg ONCE ONCE IM 09/25/24 22:00 09/25/24 22:04 DC 09/25/24 23:07 1,000 MG Doxycycline Monohydrate 100 mg ONCE ONCE PO 09/25/24 22:00 09/25/24 22:04 DC 09/25/24 23:07 100 MG Assessment/Plan Assessment/Plan Acute left flank pain due to suspected early left ureteral obstruction vs referred pain * Rule in: early obstructive uropathy, ureteritis, referred pain from prostatitis * Rule out: nephrolithiasis (no stones on CT), MSK pain Cole-yellow penile discharge, likely urethritis secondary to STI (Gonorrhea/Chlamydia) * Rule in: Urethritis (post unprotected intercourse, mucopurulent discharge) * Rule out: non-STI urethritis, prostatitis Scleral icterus with hyperbilirubinemia suspect [place] syndrome vs mild hemolysis vs hepatitis * Rule in: [place], hepatitis panel pending * Rule out: obstructive jaundice (no dilated ducts, liver enzymes normal) Hypokalemia (K 3.3) Chronic bradycardia (asymptomatic, athletic heart) History of right ureteropelvic junction obstruction stable post nephrostomy tube placement Acute Urethritis due to Suspected Gonorrhea/Chlamydia Treatment Plan: * Ceftriaxone 500 mg IM x1 ? Covers N. gonorrhoeae * Doxycycline 100 mg PO BID for 7 days ? Covers Chlamydia * STI testing via NAAT , HIV testing * Urinalysis and culture to rule out concurrent UTI * Sexual abstinence advised until treatment complete Left Flank Pain Suspected Obstructive Uropathy Treatment Plan: * Renal ultrasound * Urology consult * Pain control with acetaminophen; avoid NSAIDs due to Cr 1.3 * Monitor I/Os, urinary symptoms * Hydration with IV fluids Hypokalemia (K+ = 3.3 mEq/L) Treatment Plan: * KCl 40 mEq PO daily 3 days * Recheck BMP daily, adjust dose accordingly * IV supplementation if oral route poorly tolerated or symptoms worsen Chronic Bradycardia (Athletes Heart) Treatment Plan: * Admit to telemetry to monitor for pauses or new conduction issues * No specific intervention unless patient becomes symptomatic * Avoid AV liliana blocking meds * Cardiology follow-up post-discharge to reevaluate if any new concerns VTE Prophylaxis: * SCD * To prevent hospital-acquired DVT/PE GI Protection * Pantoprazole 40 mg PO daily Other Preventive and Supportive Measures: * IV Fluids: To maintain hydration and support renal function * Telemetry: Given baseline bradycardia and risk of electrolyte shifts * Daily labs: CBC, CMP, BMP with Mg/Phos * Strict I/O monitoring: To assess renal perfusion and volume status * Patient education: On STI, safe sex, and need for partner treatment ase discussed in detail with the attending physician, including the clinical presentation, diagnostic workup, and comprehensive management plan. The patient was present for the discussion and demonstrated understanding of his condition and the proposed plan. Patient verbally consented to hospital admission and agreed to the outlined evaluation and treatment strategies, including imaging, labs, medication initiation, specialist consultations, and supportive care. Plan discussed with: Patient My Orders Orders - EDU REYES RESIDENT Procedure Category Date Status Time Admit ADMIT 09/26/24 Transmitted 00:13 Code Status CODE 09/26/24 Transmitted 00:13 Vital Signs [facility] 09/26/24 In Process 00:13 Review Orders With [facility] 09/26/24 In Process Adm. 00:13 Encourage Activity As [facility] 09/26/24 In Process Tolerate 00:13 Regular Diet DIET 09/26/24 Transmitted Breakfast Acetaminophen Tablet PHA 09/26/24 Logged (Tylenol Tablet) 00:15 Notify Of Changes [facility] 09/26/24 In Process From Base 00:13 Advance Directive [facility] 09/26/24 In Process 00:13 Urinalysis LAB 09/26/24 Logged 00:13 Complete Blood Count LAB 09/26/24 Logged 00:13 Patient Condition ORDERS 09/26/24 Transmitted 00:13 Allergies [facility] 09/26/24 In Process 00:13 Hydrocodone-Acet PHA 09/26/24 Logged 5/325mg Tab ([place] 00:15 Hemoglobin A1c LAB 09/26/24 Logged 00:13 Sequential [facility] 09/26/24 In Process Compression Device Stat Ekg For Chest [facility] 09/26/24 In Process Pain 00:13 Notify Of Changes [facility] 09/26/24 In Process From Base 00:13 Comprehensive LAB 09/26/24 Logged Metabolic Panel 00:13 Magnesium LAB 09/26/24 Logged 00:13 Phosphorus LAB 09/26/24 Logged 00:13 Hepatic Panel LAB 09/26/24 Logged 00:13 Hiv 1&2 Antibody LAB 09/26/24 Logged 00:13 Kidney US 09/26/24 Logged 00:13 Potassium Er Tablet PHA 09/26/24 Logged (Klor-Con Tablet) 00:15 Thiamine Tab PHA 09/26/24 Logged 00:15 Electrical Designer Drafter ORDERS 09/26/24 Transmitted 00:13 Troponin-I Hs LAB 09/26/24 Logged 00:13 B-Type Natriuretic LAB 09/26/24 Logged Peptide 00:13 Troponin-I Hs LAB 09/26/24 Logged 01:13 Troponin-I Hs LAB 09/26/24 Logged 03:13 Urine Bacterial NATHAINEL 09/26/24 Logged Culture 00:13 Doxycycline Tablet PHA 09/26/24 Logged (Vibramycin Tablet) 10:00 Date of Service: Sep 26, 2024 Billing Provider: TODD MOORE MD Common Visit Codes: [id number] INP/OBS CARE (HIGH) Secondary Visit Codes: [id number] CARE PLAN 30 MINUTES EDU REYES RESIDENT Sep 26, 2024 01:02
--- NOTE | 2024-09-26 01:21 | DVH ---
INDICATION: EVALUATEFOR UROLITHIASIS, URETEROPELVIC JUNCTION OBSTRUCTION TECHNIQUE: Multiple real-time sonographic images of the kidneys and bladder were obtained. COMPARISON: US KIDNEY on DOS: 11/26/22 FINDINGS: RIGHT kidney measures 10.6 cm in length. Moderate hydronephrosis. LEFT kidney measures 10.0 cm in length. No hydronephrosis. No large intraluminal masses are seen in the bladder. Bladder appears decompressed. Post void residual not assessed. IMPRESSION: 1. Moderate right hydronephrosis.
[2024-09-26 01:46] LABS: Alanine Aminotransferase 13 U/L (7-40); Albumin 4.6 g/dL (3.2-4.8); Alkaline Phosphatase 76 U/L (46-116); Anion Gap 8 (5-15); BUN/Creatinine Ratio 7.4 (10.0-20.0); Bilirubin, Direct 0.3 mg/dL (<0.3); Bilirubin, Total 0.8 mg/dL (0.2-1.0); Blood Urea Nitrogen 9 mg/dL (9-23); Calcium 10.4 mg/dL (8.7-10.4); Carbon Dioxide 25 mmol/L (20-31); Glucose 92 mg/dL (74-106); Magnesium 2.1 mg/dL (1.6-2.6); Sodium 140 mmol/L (136-145); Total Protein 7.4 g/dL (5.7-8.2)
[2024-09-26 01:48] LABS: Chloride 107 mmol/L (98-107); Potassium 3.4 mmol/L (3.5-5.1)
[2024-09-26] MEDS: THIAMINE HCL 100 MG TAB PO ONE (02:04)
[2024-09-26] MEDS: PANTOPRAZOLE 40 MG TAB PO ONE (02:05)
[2024-09-26] MEDS: POTASSIUM CHL 20 Meq TABLET PO ONE (02:05)
[2024-09-26] MEDS: DOXYCYCLINE 100 MG TAB/CAP PO SCH (09:13)
[2024-09-26] MEDS ORDERED: DOXY-286 PO (13:45)
[2024-09-26] MEDS ORDERED: PANT40T PO (13:45)
--- NOTE | 2024-09-26 14:48 | DVHDSRES ---
Discharge Summary Date of Admission Resident Creating Document: ALEXIS CHAVIS RESIDENT Sep 26, 2024 at 00:28 Date of Discharge: Sep 26, 2024 Admitting Diagnosis Acute Urethritis due to Suspected Gonorrhea/Chlamydia Labs/Diagnostic Data: Laboratory Results Test 09/26/24 09:08 09/26/24 03:47 09/26/24 00:36 09/25/24 18:25 Potassium Level 3.8 mmol/L (3.5-5.1) Troponin I High Sensitivity 41 ng/L (</=54) White Blood Count 7.7 10^3/uL (4.4-10.8) Red Blood Count 4.96 10^6/uL (4.5-5.90) Hemoglobin 16.8 g/dL (13.5-17.5) Hematocrit 47.5 % (41.0-53.0) Mean Corpuscular Volume 95.7 fL (80.0-100.0) Mean Corpuscular Hemoglobin 33.8 pg (28.0-32.0) Mean Corpuscular Hemoglobin Concent 35.3 g/dL (32.0-36.0) Red Cell Distribution Width 14.1 % (11.8-14.3) Platelet Count 188 10^3/uL (140-450) Mean Platelet Volume 8.2 fL (6.9-10.8) Neutrophils (%) (Auto) 63.1 % (37.0-80.0) Lymphocytes (%) (Auto) 27.4 % (10.0-50.0) Monocytes (%) (Auto) 7.5 % (0.0-12.0) Eosinophils (%) (Auto) 1.3 % (0.0-7.0) Basophils (%) (Auto) 0.7 % (0.0-2.0) Neutrophils # (Auto) 4.9 10 ^3/uL (1.6-8.6) Lymphocytes # (Auto) 2.1 10 ^3/uL (0.4-5.4) Monocytes # (Auto) 0.6 10 ^3/uL (0-1.3) Eosinophils # (Auto) 0.1 10 ^3/uL (0-0.8) Basophils # (Auto) 0.1 10 ^3/uL (0-0.2) Nucleated Red Blood Cells 0.2 % Sodium Level 140 mmol/L (136-145) Chloride Level 107 mmol/L (98-107) Carbon Dioxide Level 25 mmol/L (20-31) Anion Gap 8 (5-15) Blood Urea Nitrogen 9 mg/dL (9-23) Creatinine 1.22 mg/dL (0.700-1.30) Glomerular Filtration Rate Calc 83 mL/min (>90) BUN/Creatinine Ratio 7.4 (10.0-20.0) Serum Glucose 92 mg/dL (74-106) Hemoglobin A1c 4.7 % A1C (<5.7) Calcium Level 10.4 mg/dL (8.7-10.4) Phosphorus Level 3.4 mg/dL (2.4-5.1) Magnesium Level 2.1 mg/dL (1.6-2.6) Total Bilirubin 0.8 mg/dL (0.2-1.0) Direct Bilirubin 0.3 mg/dL (<0.3) Aspartate Amino Transferase (AST) 25 U/L (13-40) Alanine Aminotransferase (ALT) 13 U/L (7-40) Alkaline Phosphatase 76 U/L (46-116) B-Type Natriuretic Peptide 22.54 pg/mL (0-100) Total Protein 7.4 g/dL (5.7-8.2) Albumin 4.6 g/dL (3.2-4.8) HIV (1&2) Antibody Negative (Negative) Urine Color Yellow (Yellow) Urine Clarity Clear (Clear) Urine pH 6.5 (5.0-9.0) Urine Specific Mercedes 1.020 (1.001-1.035) Urine Protein Negative (Negative) Urine Ketones 1+ (Negative) Urine Blood Negative /uL (Negative) Urine Nitrite Negative (Negative) Urine Bilirubin Negative (Negative) Urine Urobilinogen 2 mg/dL (Negative) Urine Leukocyte Esterase Negative /uL (Negative) Urine RBC 1 /hpf (0 - 3) Urine Microscopic WBC 3 /HPF (0-3) Urine Squamous Epithelial Cells Few /hpf (<5) Urine Bacteria None seen /hpf (None Seen) Urine Mucus Few (None Seen) Urine Glucose Normal mg/dL (Normal) Test 09/25/24 16:33 Lipase 42 U/L (12-53) Other Laboratory Tests 09/26/24 09:08 09/26/24 00:36 Brief Hx & Hospital Course: This is a 29-year-old male with past medical history of right ureteropelvic junction obstruction, bradycardia (athlete's heart), and urinary tract infection, status-post right nephrostomy tube placement in November 2022, presenting to the ED with 23 months of intermittent, 4/10 in intensity,non- radiating left flank pain and left lower quadrant abdominal pain, described as dull and aching.The patient also endorses grayish urethral discharge that began approximately 2 weeks ago, following unprotected sexual intercourse with a new partner 1 month prior. He additionally reports scleral icterus for 1 month, fatigue, generalized weakness, and chest wall discomfort over the last 2 weeks. No dysuria, urinary frequency, hematuria, fevers, chills, nausea, vomiting, or weight loss reported. Denies recent travel or IV drug use. Brief hospital course Patient came to the ED with possible acute urethritis due to suspected gonorrhea/chlamydia she was given 1 dose of ceftriaxone 500 mg IM and doxycycline 100 mg p.o. b.i.d. for 7 days, HIV test showed negative results and pending gonorrhea/chlamydia (NAAT) test. Urinalysis shows no UTI signs. Secure abstinence was advised of the treatment was complete. Renal Ultrasound shows mild right hydronephrosis. For his left flank pain pain was controlled with acetaminophen, Hydration was given with IV fluids. Patient had hypokalemia on arrival and was given p.o. potassium 40, which corrected the hypokalemia. For his chronic bradycardia patient was admitted to telemetry to monitor his heart rate, advised to avoid AV liliana blocking medications. Cardiology follow-up outpatient to re-evaluate any concerns was advised. PPI prophylaxis was given with Protonix 40 mg p.o., patient was ambulatory. Patient was educated on STIs, safe sex and need for partner treatment. Patient's urine culture is pending and is advised to follow-up with discharge clinic to review the results. Patient is stable for discharge, he communicated understanding of his diagnosis and discharge plan agrees to follow-up with discharge Clinic in 1 week. General: Patient alert and oriented in person, place and time. Patient following commands. HEENT: Normocephalic, atraumatic, moist mucous membranes, Scleral icterus Respiratory/pulmonary: Clear lungs bilaterally, vesicular murmurs present in almost all lung medina, no associated crackles or wheezes. Cardiovascular: Normal heart sounds S1 and S2 with no associated murmurs, Bradycardia Abdomen: Abdomen nondistended, there is no pain to palpation in any of the abdominal quadrants, no palpable masses. Extremities: There is no peripheral edema present at the lower extremities. Peripheral Pulses: 3+ Radial (R). 3+ Radial (L). 3+ Dorsalis pedis (R). 3+ Dorsalis pedis(L) Skin: No rashes or pruritus, there is no sacral edema present at this time. Neurological: Intact cranial nerves with no focal neurologic deficits Operations or Procedures COMPUTERIZED TOMOGRAPHY ABDOMEN AND PELVIS WITHOUT CONTRAST REASON FOR EXAM: flank pain COMPARISON: CT CT AB PEL WO CON-NO ORAL OR IV on DOS: 02/23/23, CT CT AB PEL WO CON-NO ORAL OR IV on DOS: 11/25/22 TECHNIQUE: Spiral scans were acquired from the diaphragm to the symphysis pubis without intravenous contrast administration. 2-D coronal and sagittal reformatted images were provided. Radiation optimization: All CT scans at this facility use at least one of these dose optimization techniques: Automated exposure control mA and/or kV adjustment per patient size (includes targeted exams where dose is matched to clinical indication) or iterative reconstruction. RADIATION DOSE: CTDI: 10 mGy DLP: 551 mGy-cm FINDINGS: The lung bases are clear. There is no pleural effusion. There is no pericardial effusion. The spleen is not enlarged. The liver is normal in size and contour. Evaluation of the abdominal organs is suboptimal in the absence of intravenous contrast. No calcified gallstone is identified. Unenhanced appearance of the pancreas is unremarkable. The adrenal glands are normal. The kidneys are similar in size. There is mild right hydronephrosis, significantly decreased compared with the prior study. There is no left hydronephrosis. No renal, ureteral, or bladder calculus is identified. The urinary bladder is grossly unremarkable. The prostate and seminal vesicles are within normal limits. The colonic stool burden is small. The appendix is normal. No free fluid is identified in the abdomen or pelvis. No pathologic lymphadenopathy is identified within the limitations of this noncontrast study. There is no abdominal aortic aneurysm. There is no pathologic distention of the small bowel to suggest obstruction. No acute osseous abnormality is identified. IMPRESSION: Mild right hydronephrosis, significantly decreased compared with the prior study. This may be the new baseline for the patient given the degree of previous right collecting system distention. No other significant abnormality in the abdomen or pelvis. Normal appendix CATION: EVALUATEFOR UROLITHIASIS, URETEROPELVIC JUNCTION OBSTRUCTION TECHNIQUE: Multiple real-time sonographic images of the kidneys and bladder were obtained. COMPARISON: US KIDNEY on DOS: 11/26/22 FINDINGS: RIGHT kidney measures 10.6 cm in length. Moderate hydronephrosis. LEFT kidney measures 10.0 cm in length. INDICATION: EVALUATEFOR UROLITHIASIS, URETEROPELVIC JUNCTION OBSTRUCTION TECHNIQUE: Multiple real-time sonographic images of the kidneys and bladder were obtained. COMPARISON: US KIDNEY on DOS: 11/26/22 FINDINGS: RIGHT kidney measures 10.6 cm in length. Moderate hydronephrosis. LEFT kidney measures 10.0 cm in length. No hydronephrosis. No large intraluminal masses are seen in the bladder. Bladder appears decompressed. Post void residual not assessed. IMPRESSION: 1. Moderate right hydronephrosis. No hydronephrosis. No large intraluminal masses are seen in the bladder. Bladder appears decompressed. Post void residual not assessed. IMPRESSION: 1. Moderate right hydronephrosis. Condition at Discharge: Stable Final Diagnosis/Problems List Acute Urethritis due to Suspected Gonorrhea/Chlamydia Left Flank Pain likely secondary to urethritis Right sided hydronephrosis, S/p surgery Hypokalemia - Resolved Chronic Bradycardia (Athletes Heart) Discharge Disposition: Home Discharge Instruct/Medications Diet: Regular Activity: No Restrictions, As Tolerated Follow Up/Referral: Follow up with discharge clinic in 1- 2 weeks Medications: As per EMR Scheduled Doxycycline Hyclate (Doxycycline Hyclate), 1 TAB PO BID Pantoprazole Sodium Sesquihydr (Pantoprazole Sodium), 40 MG PO DAILY Discontinued Medications Ciprofloxacin Hcl (Ciprofloxacin Hcl), 1 TAB PO BID, (Reported) Discharge Statement: "Patient was advised to return to the ER or call 911 if any headaches, dizziness, shortness of breath, chest pain, abdominal pain, bleeding, fevers, or worsening of medical condition. Patient was counseled about treatment plan, medications, possible side effects, patientverbalized understanding. All questions were answered to the best of my ability. This discharge took greater then 30 minutes in planning, reviewing documentation, counseling the patient, and discussing with other team members." ASSESSMENT ASSESSMENT Assessment Acute Urethritis due to suspected Gonorrhea/chlamydia Date of Service: Sep 26, 2024 Billing Provider: BRIAN BUENO MD Common Visit Codes: 69408-TPK/OBS DISCH DAY >30min ALEXIS CHAVIS Sep 26, 2024 14:48 BRIAN BUENO MD Sep 26, 2024 16:18
[2024-09-27] MEDS ORDERED: PANTOPRAZOLE 40 MG TAB PO SCH (06:00)
[2024-09-27 10:13] LABS: Hepatitis B Surface Antigen Negative (Negative)
[2024-09-27 10:31] LABS: Hepatitis C Antibody Negative (Negative)
== END 2024-09-26 14:00 | disposition home or self-care (01) | DRG 728 ==
LOC: ER 16:10 → OVERFLOW 09-26 00:28 → EAST 09-26 03:33
PROVIDERS: ATTEND Emergency Medicine
DX: A56.01 Chlamydial cystitis and urethritis (principal); N13.30 Unspecified hydronephrosis; A54.01 Gonococcal cystitis and urethritis, unspecified; F17.210 Nicotine dependence, cigarettes, uncomplicated; E87.6 Hypokalemia; Z91.013 Allergy to seafood; Z79.2 Long term (current) use of antibiotics; Z79.899 Other long term (current) drug therapy; Z93.6 Other artificial openings of urinary tract status; Z83.3 Family history of diabetes mellitus; Z83.6 Family history of other diseases of the respiratory system
CPT/HCPCS: 36415; 74176; 76775; 80048; 80053; 80076; 81001; 83036; 83690; 83735; 83880; 84100; 84132; 84484; 85025; 86703; 86803; 87086; 87340; 96372; G0378; J0696

== ENCOUNTER 2025-02-02 19:11 | Emergency (ER) | payer OTHER ==
[~2025-02-02] VITALS: Ht 170.2 cm; Wt 84.3 kg
[~2025-02-02 19:11] MED LIST changes: -CIPR500T4 PO; +DOXY-286 PO; +PANT40T PO
[2025-02-02 21:58] VITALS: BP 117/73; PULSE 48; RESP 14; TEMP 98.2; O2SAT 97
[2025-02-02] MEDS ORDERED: IBUP-1456 PO (22:24)
[2025-02-02] MEDS ORDERED: AMOX875T4 PO (22:24)
--- NOTE | 2025-02-02 22:24 | ED.PDOC ---
Eye-HPI HPI Comments 29 year old male presents to ER with complaints of right-sided earache pain x2 days. Patient reports he has been experiencing intermittent right-sided earache pain, congestion and mild dry cough x2 days. Denies any current pain and denies use of medications for current symptoms. Patient presents to ER ambulatory on arrival, with steady gait, in no distress. Denies fever, body aches, chills, headache, dizziness, shortness of breath, ear drainage or any further symptoms/complaints Chief Complaint: Earache Time Seen by MD: 19:19 Primary Care Provider: UNKNOWN Reviewed Notes: Nurses Notes, Medications, Allergies Allergies: Coded Allergies: Shellfish Allergy (Verified Allergy, Unknown, 02/23/23) Uncoded Allergies: SHELL FISH (Allergy, Unknown, SWOLLEN EYES, HIVES, 02/05/23) Home Meds Active Scripts Ibuprofen (Ibuprofen) 800 Mg Tab, 1 TAB PO TID PRN, #30 TAB 0 Refills Prov:SUNG SIFUENTES 02/02/25 Amoxicillin & Pot Clavulanate (Amoxicillin/Potassium Cla) 875 Mg Tab, 1 TAB PO BID for 10 Days, #20 TAB 0 Refills Prov:SUNG SIFUENTES 02/02/25 Pantoprazole Sodium Sesquihydr (Pantoprazole Sodium) 40 Mg Tab, 40 MG PO DAILY for 14 Days, #14 TAB Prov:KAYLA RIVERA RESIDENT 09/26/24 Doxycycline Hyclate (DOXYCYCLINE HYCLATE) 100 Mg Tab, 1 TAB PO BID for 7 Days, #14 TAB Prov:KAYLA RIVERA RESIDENT 09/26/24 Information Source: Patient Mode of Arrival: Ambulatory Past Medical History PAST MEDICAL HISTORY: Denies Surgical History: Denies all surgeries Family History Family History: Unknown Social History Smoker: Cigarettes, Less Than 1 Pack/Day Alcohol: Occasionally Drugs: Marijuana Lives In: Home Constitutional: denies: chills, diaphoresis, fatigue, fever, malaise, sweats, weakness, others EENTM: reports: others (As stated in HPI) Respiratory: reports: others (As stated in HPI) Cardiovascular: denies: chest pain, dizzy spells, diaphoresis, Dyspnea on exertion, edema, irregular heart beat, left arm pain, lightheadedness, palpitations, PND, syncope, others Gastrointestinal: denies: abdomen distended, abdominal pain, blood streaked bowels, constipated, diarrhea, dysphagia, difficulty swallowing, hematemesis, melena, nausea, poor appetite, poor fluid intake, rectal bleeding, rectal pain, vomiting, others Genitourinary: denies: burning, dysuria, flank pain, frequency, hematuria, incontinence, penile discharge, penile sore, pain, testicle pain, testicle swelling, urgency, others Neurological: denies: dizziness, fainting, headache, left sided numbness, left sided weakness, numbness, paresthesia, pre-existing deficit, right sided numbness, right sided weakness, seizure, speech problems, tingling, tremors, weakness, others Musculoskeletal: denies: back pain, gout, joint pain, joint swelling, muscle pain, muscle stiffness, neck pain, others Integumetry: denies: bruises, change in color, change in hair/nails, dryness, laceration, lesions, lumps, rash, wounds, others Allergic/Immunocompromised: denies: Difficulty Healing, Frequent Infections, Hives, Itching, others Hematologic/Lymphatic: denies: anemia, blood clots, easy bleeding, easy bruising, swollen glands, others Endocrine: denies: excessive hunger, excessive sweating, excessive thirst, excessive urination, flushing, intolerance to cold, intolerance to heat, unexplained weight gain, unexplained weight loss, others Psychiatric: denies: anxiety, bipolar disorder, depression, hopeless, panic disorder, schizophrenia, sleepless, suicidal, others Physical Exam General Appearance: No Apparent Distress HEENT: PERRL/EOMI, Pharynx Normal, Other (Mild erythema/bulging noted to right TM. Remainder bilateral ear exam-unremarkable) Neck: Full Range of Motion, Non-Tender, Normal Respiratory: Chest Non-Tender, Lungs Clear, No Accessory Muscle Use, No Respiratory Distress, Normal Breath Sounds Cardiovascular: No Murmur, No Gallop, Regular Rate/Rhythm Breast Exam: Deferred Gastrointestinal: NOT DONE Genitalia: Deferred Pelvic: Deferred Rectal: Deferred Extremities: Normal capillary refill, Normal range of motion Neurologic: Alert, No Motor Deficits, Normal Affect, Normal Mood, No Sensory Deficits Cerebellar Function: Normal Reflexes: Normal Skin: Dry, Normal Color, Warm Lymphatic: No Adenopathy Was a procedure done? Was a procedure done?: No Sedation Sedation?: No EENT DIFF Eye: N/A Ear: Abrasion, Cerumen Impaction, Foreign Body, Otitis Externa, Perforation X-Ray, Labs, Meds, VS Vital Signs Date Time Temp Pulse Resp B/P (MAP) Pulse Ox O2 Delivery O2 Flow Rate FiO2 02/02/25 21:58 98.2 48 14 117/73 (88) 97 98.2 02/02/25 19:17 97.5 46 17 144/67 96 97.5 Rocephin 1 g IM ordered Smoking/cannabis cessation discussed and advised Advised to drink plenty of fluids Advised to follow up with PCP in 1-2 days Patient verbalized understanding and agreeable with current plan of care Advised to return to ER immediately if symptoms worsen Time of 1ST Reevaluation: 22:02 Reevaluation 1ST: N/A Patient Education/Counseling: Diagnosis, Treatment, Prognosis, Need For Follow Up Family Education/Counseling: No Family Present SEPSIS Sepsis Screen Date sepsis recognized/suspect: Feb 02, 2025 Time Sepsis recognized/suspect: 1923 Recent Procedure: No On Antibiotic Therapy: No Respiratory Rate >20: No Heart Rate >90: No Temp<36 C (96.8 F) or >38.3 C: No SBP <90 or MAP <65 mmHG: No New Acute Mental Status Change: No Is the patient on CPAP, BIPAP,: No Physician Orders Ceftriaxone Sodium (Rocephin) (02/02/25 22:30) Vital Signs Date Time Temp Pulse Resp B/P (MAP) Pulse Ox O2 Delivery O2 Flow Rate FiO2 02/02/25 21:58 98.2 48 14 117/73 (88) 97 98.2 02/02/25 19:17 97.5 46 17 144/67 96 97.5 Departure 1 Departure Time of Disposition: 22:22 Impression: Primary Impression: Otitis media of right ear Qualified Codes: H66.91 - Otitis media, unspecified, right ear Additional Impression: Viral URI Disposition: HOME / SELF CARE / HOMELESS Condition: Stable e-Prescriptions Ibuprofen (Ibuprofen) 800 Mg Tab 1 TAB PO TID PRN, #30 TAB 0 Refills Prov: SUNG SIFUENTES 02/02/25 Amoxicillin & Pot Clavulanate (Amoxicillin/Potassium Cla) 875 Mg Tab 1 TAB PO BID for 10 Days, #20 TAB 0 Refills Prov: SUNG SIFUENTES 02/02/25 Discharged With: Self Critical Care Note Critical Care Time?: No Stability Stability form required: No Heart Score Heart Score: Heart Score Response (Comments) Value History N/A 0 EKG N/A 0 Age N/A 0 Risk Factors N/A 0 Troponin N/A 0 Total 0 SUNG SIFUENTES Feb 02, 2025 22:24
[2025-02-02] MEDS: cefTRIAXone SOD 1,000 MG VL ONE (22:30)
[2025-02-02] MEDS: cefTRIAXone SOD 1,000 MG VL IM ONE (22:30)
== END 2025-02-02 22:34 | disposition home or self-care (01) ==
LOC: ER 19:11
DX: H66.91 Otitis media, unspecified, right ear (principal); J06.9 Acute upper respiratory infection, unspecified; F12.90 Cannabis use, unspecified, uncomplicated; F10.90 Alcohol use, unspecified, uncomplicated; F17.210 Nicotine dependence, cigarettes, uncomplicated; Z79.899 Other long term (current) drug therapy; Z91.013 Allergy to seafood
CPT/HCPCS: 96372; 99283; J0696